=== PATIENT | female | born 1935 | race Hispanic/Latino ===

== ENCOUNTER 2018-04-08 23:19 | Emergency (ER) | payer MEDICARE ==
[~2018-04-08] VITALS: Ht 154.9 cm; Wt 77.1 kg
--- OUTSIDE RECORDS SUMMARY | 2018-04-08 23:21 | XMS REPORT | Summary of Care ---
Author Author [facility] Organization [facility] Address Unknown Phone Unavailable Encounter [facility] [employer]([facility]) [id number] Date(s): 01/20/16 - 01/20/16 [facility] [address] [place] [address]- Discharge Disposition: Home or Self Care Attending Physician: Dixon Hahn MD Admitting Physician: Dixon Hahn MD Vital Signs 1 2 3 Most recent to oldest [Reference Range]: 154.94 cm (01/20/16 4:00 PM) 157.48 cm (01/20/16 12:06 PM) Height 98.6 DegF (01/21/16 3:00 PM) 98.6 DegF (01/21/16 11:00 AM) 97.8 DegF (01/21/16 8:00 AM) Temperature Oral [96.4-99.1 DegF] 148/79 mmHg *HI* (01/21/16 3:00 PM) 149/82 mmHg *HI* (01/21/16 11:00 AM) 134/79 mmHg (01/21/16 8:00 AM) Blood Pressure [90-140/60-90 mmHg] 18 BRMIN (01/21/16 3:00 PM) 18 BRMIN (01/21/16 11:00 AM) 18 BRMIN (01/21/16 8:00 AM) Respiratory Rate [14-20 BRMIN] 76 bpm (01/21/16 3:00 PM) 77 bpm (01/21/16 11:00 AM) 77 bpm (01/21/16 8:00 AM) Peripheral Pulse Rate [60-100 bpm] 76.364 kg (01/20/16 4:00 PM) 76.364 kg (01/20/16 12:06 PM) Weight 31.81 m2 (01/20/16 4:00 PM) 30.79 m2 (01/20/16 12:06 PM) Body Mass Index Problem List Condition Effective Dates Status Health Status Informant Hypertension(Confirm Resolved ed) Allergies, Adverse Reactions, Alerts Substance Reaction Severity Status NKDA Active Medications aspirin 324 mg, Route: PO, ONCE, Dosing Weight 76.364, kg, Priority: STAT, Start date: 03/21/15 12:33:00 WELDER OXYHYDROGEN, Stop date: 01/20/16 12:33:00 WELDER OXYHYDROGEN Start Date: 01/20/16 Stop Date: 01/20/16 Status: Completed aspirin 325 mg tablet 325 mg, 1 tab, Route: PO, Drug form: TAB, ONCE, Dosing Weight 76.364, kg, Start date: 01/20/16 15:50:00 WELDER OXYHYDROGEN, Stop date: 01/20/16 15:50:00 WELDER OXYHYDROGEN Notes: Take with food. Start Date: 01/20/16 Stop Date: 01/20/16 Status: Completed aspirin 81 mg tablet, enteric coated 81 mg, 1 tab, Route: PO, Drug form: ECTAB, Daily, Dosing Weight 76.364, kg, Star t date: 01/21/16 9:00:00 WELDER OXYHYDROGEN, Duration: 30 day, Stop date: 02/19/16 9:00:00 WELDER OXYHYDROGEN Notes: Do not crush or chew.(Same As: Ecotrin) Start Date: 01/21/16 Stop Date: 01/21/16 Status: Discontinued aspirin 81 mg tablet, enteric coated 81 mg=1 tab, PO, Daily, 0 Refill(s) Start Date: 01/21/16 Status: Ordered atorvastatin 40 mg, 1 tab, Route: PO, Drug form: TAB, Bedtime, Dosing Weight 76.364, kg, Star t date: 01/21/16 21:00:00 WELDER OXYHYDROGEN, Duration: 30 day, Stop date: 02/19/16 21:00:00 CS T Notes: (Same as: Lipitor) Start Date: 01/21/16 Stop Date: 01/21/16 Status: Discontinued atorvastatin 40 mg oral tablet 40 mg=1 tab, PO, Bedtime, # 30 tab, 0 Refill(s) Start Date: 01/21/16 Stop Date: 01/21/16 Status: Discontinued atorvastatin 40 mg oral tablet 40 mg=1 tab, PO, Bedtime, # 30 tab, 0 Refill(s) Start Date: 01/21/16 Status: Ordered Dextrose 50% Syringe 25 gm, 50 mL, Route: IVP, Drug Form: INJ, Dosing Weight 76.364, kg, PRN, PRN Blo od Glucose Results, Start date: 01/20/16 16:36:00 WELDER OXYHYDROGEN, Duration: 30 day, Stop da te: 02/19/16 16:35:00 WELDER OXYHYDROGEN Start Date: 01/20/16 Stop Date: 01/21/16 Status: Discontinued Dextrose 50% Syringe 12.5 gm, 25 mL, Route: IVP, Drug Form: INJ, Dosing Weight 76.364, kg, PRN, PRN B lood Glucose Results, Start date: 01/20/16 16:36:00 WELDER OXYHYDROGEN, Duration: 30 day, Stop date: 02/19/16 16:35:00 WELDER OXYHYDROGEN Start Date: 01/20/16 Stop Date: 01/21/16 Status: Discontinued Dextrose 50% Syringe 50 mL, Route: IVP, Dosing Weight 76.364, kg, PRN, PRN Blood Glucose Results, Sta rt date: 01/20/16 16:31:00 WELDER OXYHYDROGEN, Duration: 30 day, Stop date: 02/19/16 16:30:[address] Start Date: 01/20/16 Stop Date: 01/20/16 Status: Discontinued Dextrose 50% Syringe 25 mL, Route: IVP, Dosing Weight 76.364, kg, PRN, PRN Blood Glucose Results, Sta rt date: 01/20/16 16:31:00 WELDER OXYHYDROGEN, Duration: 30 day, Stop date: 02/19/16 16:30:[address] Start Date: 01/20/16 Stop Date: 01/20/16 Status: Discontinued enoxaparin 40 mg, 0.4 mL, Route: SUB-Q, Drug form: INJ, [id number], Dosing Weight 76.364, kg, Start date: 01/20/16 15:00:00 WELDER OXYHYDROGEN, Duration: 30 day, Stop date: 02/18/16 15:00: 00 WELDER OXYHYDROGEN Notes: (Same as: Lovenox) Start Date: 01/20/16 Stop Date: 01/21/16 Status: Discontinued ergocalciferol 50,000 IntlUnit, 1 cap, Route: PO, Drug form: CAP, Daily, Dosing Weight 76.364, kg, Start date: 01/21/16 9:00:00 WELDER OXYHYDROGEN, Duration: 3 day, Stop date: 01/23/16 9:00: 00 WELDER OXYHYDROGEN Notes: (Same as: Vitamin D) "Do Not Crush" Start Date: 01/21/16 Stop Date: 01/21/16 Status: Discontinued glipiZIDE 5 mg oral tablet 5 mg, 1 tab, Route: PO, Drug form: TAB, BID, Dosing Weight 76.364, kg, Start rich e: 01/21/16 9:00:00 WELDER OXYHYDROGEN, Duration: 30 day, Stop date: 02/19/16 17:00:00 WELDER OXYHYDROGEN Notes: (Same as: Glucotrol) 30 min before meals. Start Date: 01/21/16 Stop Date: 01/21/16 Status: Discontinued glipiZIDE 5 mg oral tablet 5 mg=1 tab, PO, BID, # 60 tab, 0 Refill(s) Start Date: 01/21/16 Stop Date: 01/21/16 Status: Discontinued glipiZIDE 5 mg oral tablet, extended release 5 mg=1 tab, PO, Breakfast, # 30 tab, 0 Refill(s) Start Date: 01/21/16 Status: Ordered glipiZIDE 5 mg oral tablet, extended release 5 mg=1 tab, PO, Breakfast, # 30 tab, 0 Refill(s) Start Date: 01/21/16 Status: Ordered glucagon 1 mg, Route: IM, Drug form: PDR/INJ, PRN, Dosing Weight 76.364, kg, PRN Blood Gl ucose Results, Start date: 01/20/16 16:36:00 WELDER OXYHYDROGEN, Duration: 30 day, Stop date: 04/21/15 16:35:00 WELDER OXYHYDROGEN Start Date: 01/20/16 Stop Date: 01/21/16 Status: Discontinued glucagon 1 mg, Route: IM, PRN, Dosing Weight 76.364, kg, PRN Blood Glucose Results, Start date: 01/20/16 16:31:00 WELDER OXYHYDROGEN, Duration: 30 day, Stop date: 02/19/16 16:30:00 WELDER OXYHYDROGEN Start Date: 01/20/16 Stop Date: 01/20/16 Status: Discontinued hydrALAZINE 10 mg, 0.5 mL, Route: IV, Drug form: INJ, Q4H, Dosing Weight 76.364, kg, PRN Hyp ertension, Start date: 01/20/16 14:20:00 WELDER OXYHYDROGEN, Duration: 30 day, Stop date: 02/18 14:19:00 WELDER OXYHYDROGEN Notes: (Same as: Apresoline)Push over 5 minutes Start Date: 01/20/16 Stop Date: 01/21/16 Status: Discontinued hydrochlorothiazide-lisinopril 12.5 mg-20 mg oral tablet 1 tab, PO, Daily, 0 Refill(s) Start Date: 01/20/16 Status: Ordered insulin aspart 3 unit, 0.03 mL, Route: SUB-Q, Drug form: SOLN, Bedtime, Dosing Weight 76.364, k g, PRN Blood Glucose Results, Start date: 01/20/16 16:36:00 WELDER OXYHYDROGEN, Duration: 30 da y, Stop date: 02/19/16 16:35:00 WELDER OXYHYDROGEN Notes: Roll in palms of hands gently; Do not shake vigorously. (Same as: NovoSHILOH Charles)"single patient use only"WASTE: F/P - Black; E - Municipal Trash Bin Stable f or 28 days at room temperature.Expires in days from Date Start Date: 01/20/16 Stop Date: 01/21/16 Status: Discontinued insulin aspart 4 unit, 0.04 mL, Route: SUB-Q, Drug form: SOLN, Bedtime, Dosing Weight 76.364, k g, PRN Blood Glucose Results, Start date: 01/20/16 16:36:00 WELDER OXYHYDROGEN, Duration: 30 da y, Stop date: 02/19/16 16:35:00 WELDER OXYHYDROGEN Notes: Roll in palms of hands gently; Do not shake vigorously. (Same as: NovoSHILOH G)"single patient use only"WASTE: F/P - Black; E - Municipal Trash Bin Stable f or 28 days at room temperature.Expires in days from Date Start Date: 01/20/16 Stop Date: 01/21/16 Status: Discontinued insulin aspart 1 unit, 0.01 mL, Route: SUB-Q, Drug form: SOLN, Bedtime, Dosing Weight 76.364, k g, PRN Blood Glucose Results, Start date: 01/20/16 16:36:00 WELDER OXYHYDROGEN, Duration: 30 da y, Stop date: 02/19/16 16:35:00 WELDER OXYHYDROGEN Notes: Roll in palms of hands gently; Do not shake vigorously. (Same as: Gerry Charles)"single patient use only"WASTE: F/P - Black; E - Municipal Trash Bin Stable f or 28 days at room temperature.Expires in days from Date Start Date: 01/20/16 Stop Date: 01/21/16 Status: Discontinued insulin aspart 2 unit, 0.02 mL, Route: SUB-Q, Drug form: SOLN, Bedtime, Dosing Weight 76.364, k g, PRN Blood Glucose Results, Start date: 01/20/16 16:36:00 WELDER OXYHYDROGEN, Duration: 30 da y, Stop date: 02/19/16 16:35:00 WELDER OXYHYDROGEN Notes: Roll in palms of hands gently; Do not shake vigorously. (Same as: Gerry Charles)"single patient use only"WASTE: F/P - Black; E - Municipal Trash Bin Stable f or 28 days at room temperature.Expires in days from Date Start Date: 01/20/16 Stop Date: 01/21/16 Status: Discontinued insulin aspart 10 unit, 0.1 mL, Route: SUB-Q, Drug form: SOLN, TID-Before Meals, Dosing Weight 76.364, kg, PRN Blood Glucose Results, Start date: 01/20/16 16:36:00 WELDER OXYHYDROGEN, Durati on: 30 day, Stop date: 02/19/16 16:35:00 WELDER OXYHYDROGEN Notes: Roll in palms of hands gently; Do not shake vigorously. (Same as: Gerry Charles)"single patient use only"WASTE: F/P - Black; E - Municipal Trash Bin Stable f or 28 days at room temperature.Expires in days from Date Start Date: 01/20/16 Stop Date: 01/21/16 Status: Discontinued insulin aspart 8 unit, 0.08 mL, Route: SUB-Q, Drug form: SOLN, TID-Before Meals, Dosing Weight 76.364, kg, PRN Blood Glucose Results, Start date: 01/20/16 16:36:00 WELDER OXYHYDROGEN, Durati on: 30 day, Stop date: 02/19/16 16:35:00 WELDER OXYHYDROGEN Notes: Roll in palms of hands gently; Do not shake vigorously. (Same as: Gerry Charles)"single patient use only"WASTE: F/P - Black; E - Municipal Trash Bin Stable f or 28 days at room temperature.Expires in days from Date Start Date: 01/20/16 Stop Date: 01/21/16 Status: Discontinued insulin aspart 2 unit, 0.02 mL, Route: SUB-Q, Drug form: SOLN, TID-Before Meals, Dosing Weight 76.364, kg, PRN Blood Glucose Results, Start date: 01/20/16 16:36:00 WELDER OXYHYDROGEN, Durati on: 30 day, Stop date: 02/19/16 16:35:00 WELDER OXYHYDROGEN Notes: Roll in palms of hands gently; Do not shake vigorously. (Same as: NovoSHILOH Charles)"single patient use only"WASTE: F/P - Black; E - Municipal Trash Bin Stable f or 28 days at room temperature.Expires in days from Date Start Date: 01/20/16 Stop Date: 01/21/16 Status: Discontinued insulin aspart 4 unit, 0.04 mL, Route: SUB-Q, Drug form: SOLN, TID-Before Meals, Dosing Weight 76.364, kg, PRN Blood Glucose Results, Start date: 01/20/16 16:36:00 WELDER OXYHYDROGEN, Durati on: 30 day, Stop date: 02/19/16 16:35:00 WELDER OXYHYDROGEN Notes: Roll in palms of hands gently; Do not shake vigorously. (Same as: NovoSHILOH G)"single patient use only"WASTE: F/P - Black; E - Municipal Trash Bin Stable f or 28 days at room temperature.Expires in days from Date Start Date: 01/20/16 Stop Date: 01/21/16 Status: Discontinued insulin aspart 6 unit, 0.06 mL, Route: SUB-Q, Drug form: SOLN, TID-Before Meals, Dosing Weight 76.364, kg, PRN Blood Glucose Results, Start date: 01/20/16 16:36:00 WELDER OXYHYDROGEN, Durati on: 30 day, Stop date: 02/19/16 16:35:00 WELDER OXYHYDROGEN Notes: Roll in palms of hands gently; Do not shake vigorously. (Same as: Gerry Charles)"single patient use only"WASTE: F/P - Black; E - Municipal Trash Bin Stable f or 28 days at room temperature.Expires in days from Date Start Date: 01/20/16 Stop Date: 01/21/16 Status: Discontinued insulin aspart 8 unit, Route: SUB-Q, TID-Before Meals, Dosing Weight 76.364, kg, PRN Blood Gluc ose Results, Start date: 01/20/16 16:31:00 WELDER OXYHYDROGEN, Duration: 30 day, Stop date: 16:30:00 WELDER OXYHYDROGEN Start Date: 01/20/16 Stop Date: 01/20/16 Status: Discontinued insulin aspart 4 unit, Route: SUB-Q, TID-Before Meals, Dosing Weight 76.364, kg, PRN Blood Gluc ose Results, Start date: 01/20/16 16:31:00 WELDER OXYHYDROGEN, Duration: 30 day, Stop date: 16:30:00 WELDER OXYHYDROGEN Start Date: 01/20/16 Stop Date: 01/20/16 Status: Discontinued insulin aspart 2 unit, Route: SUB-Q, TID-Before Meals, Dosing Weight 76.364, kg, PRN Blood Gluc ose Results, Start date: 01/20/16 16:31:00 WELDER OXYHYDROGEN, Duration: 30 day, Stop date: 16:30:00 WELDER OXYHYDROGEN Start Date: 01/20/16 Stop Date: 01/20/16 Status: Discontinued insulin aspart 6 unit, Route: SUB-Q, TID-Before Meals, Dosing Weight 76.364, kg, PRN Blood Gluc ose Results, Start date: 01/20/16 16:31:00 WELDER OXYHYDROGEN, Duration: 30 day, Stop date: 16:30:00 WELDER OXYHYDROGEN Start Date: 01/20/16 Stop Date: 01/20/16 Status: Discontinued insulin aspart 10 unit, Route: SUB-Q, TID-Before Meals, Dosing Weight 76.364, kg, PRN Blood Glu cose Results, Start date: 01/20/16 16:31:00 WELDER OXYHYDROGEN, Duration: 30 day, Stop date: 16:30:00 WELDER OXYHYDROGEN Start Date: 01/20/16 Stop Date: 01/20/16 Status: Discontinued Lipitor 40 mg, 1 tab, Route: PO, Drug form: TAB, Bedtime, Dosing Weight 76.364, kg, Star t date: 01/20/16 21:00:00 WELDER OXYHYDROGEN, Duration: 30 day, Stop date: 02/18/16 21:00:00 CS T Notes: (Same as: Lipitor) Start Date: 01/20/16 Stop Date: 01/21/16 Status: Discontinued lisinopril 5 mg, Route: PO, Drug form: TAB, Daily, Dosing Weight 76.364, kg, Start date: 9:00:00 WELDER OXYHYDROGEN, Duration: 30 day, Stop date: 02/19/16 9:00:00 WELDER OXYHYDROGEN Start Date: 01/21/16 Stop Date: 01/20/16 Status: Canceled lisinopril 5 mg, 1 tab, Route: PO, Drug form: TAB, Daily, Dosing Weight 76.364, kg, Start d ate: 01/21/16 9:00:00 WELDER OXYHYDROGEN, Duration: 30 day, Stop date: 02/19/16 9:00:00 WELDER OXYHYDROGEN Notes: (Same as: Prinivil, Zestril) Start Date: 01/21/16 Stop Date: 01/21/16 Status: Discontinued metoprolol 5 mg/5 ml INJ 5 mg, 5 mL, Route: IV, Drug form: INJ, Q2H, Dosing Weight 76.364, kg, PRN Tachyc ardia, Start date: 01/20/16 14:21:00 WELDER OXYHYDROGEN, Duration: 30 day, Stop date: 02/19/16 14:20:00 WELDER OXYHYDROGEN Notes: (Same as: Lopressor)Push over 2 minutes Start Date: 01/20/16 Stop Date: 01/21/16 Status: Discontinued morphine Sulfate 2 mg, 1 mL, Route: IVP, Drug form: INJ, Q2H, Dosing Weight 76.364, kg, PRN Chest Pain, Start date: 01/20/16 14:20:00 WELDER OXYHYDROGEN, Duration: 30 day, Stop date: 02/19/16 14:19:00 WELDER OXYHYDROGEN Notes: (Same as:MORPhine Sulfate) Start Date: 01/20/16 Stop Date: 01/21/16 Status: Discontinued nitroglycerin SL Tab 0.4 mg, 1 tab, Route: SL, Drug form: TAB, Q5Min, Dosing Weight 76.364, kg, PRN C hest Pain, Start date: 01/20/16 15:50:00 WELDER OXYHYDROGEN, Duration: 3 doses or times, Stop d ate: Limited # of times Notes: (Same as:Nitroquick, Nitrostat)"Do Not Crush" Sublingual tablet Start Date: 01/20/16 Stop Date: 01/21/16 Status: Discontinued Nitrostat 0.4 mg sublingual tablet 0.4 mg, 1 tab, Route: SL, Drug form: TAB, Q5Min, Dosing Weight 76.364, kg, PRN C hest Pain, Start date: 01/20/16 14:21:00 WELDER OXYHYDROGEN, Duration: 3 doses or times, Stop d ate: Limited # of times Notes: (Same as:Nitroquick, Nitrostat)"Do Not Crush" Sublingual tablet Start Date: 01/20/16 Stop Date: 01/21/16 Status: Discontinued NS (Bolus) IV 1,000 mL, 1,000 ml/hr, Infuse Over: 1 hr, Route: IV, ONCE, Priority: STAT, Dosin g Weight 76.364 kg, Start date: 01/20/16 13:29:00 WELDER OXYHYDROGEN, Duration: 1 doses or time s, Stop date: 01/20/16 13:29:00 WELDER OXYHYDROGEN Start Date: 01/20/16 Stop Date: 01/20/16 Status: Completed Saline Flush 0.9% 10 mL, Route: IVP, Drug Form: INJ, Dosing Weight 76.364, kg, PRN, PRN Line Flush , Start date: 01/20/16 12:33:00 WELDER OXYHYDROGEN, Duration: 30 day, Stop date: 02/19/16 12:32 :00 WELDER OXYHYDROGEN Notes: (Same as: BD Posiflush) Start Date: 01/20/16 Stop Date: 01/20/16 Status: Discontinued Saline Flush 0.9% 10 ml, Route: IVP, Drug Form: INJ, Dosing Weight 76.364, kg, Q12H, Start date: 03/21/15 21:00:00 WELDER OXYHYDROGEN, Duration: 30 day, Stop date: 02/19/16 9:00:00 WELDER OXYHYDROGEN Notes: (Same as: BD Posiflush) Start Date: 01/20/16 Stop Date: 01/21/16 Status: Discontinued Saline Flush 0.9% 10 ml, Route: IVP, Drug Form: INJ, Dosing Weight 76.364, kg, PRN, PRN Line Flush , Start date: 01/20/16 15:50:00 WELDER OXYHYDROGEN, Duration: 30 day, Stop date: 02/19/16 15:49 :00 WELDER OXYHYDROGEN Notes: (Same as: BD Posiflush) Start Date: 01/20/16 Stop Date: 01/21/16 Status: Discontinued sodium chloride 0.9% 1000 ml INJ 1,000 mL 1,000 mL, Rate: 75 ml/hr, Infuse over: 13.3 hr, Route: IV, Dosing Weight 76.364 kg, Total Volume: 1,000, Start date: 01/20/16 20:00:00 WELDER OXYHYDROGEN, Duration: 30 day, St op date: 02/19/16 19:59:00 WELDER OXYHYDROGEN Start Date: 01/20/16 Stop Date: 01/21/16 Status: Discontinued Results ELECTROLYTES 1 2 3 Most recent to oldest [Reference Range]: 136 mEq/L (01/20/16 12:36 PM) Sodium Lvl [135-145 mEq/L] 4.0 mEq/L (01/20/16 12:36 PM) Potassium Lvl [3.5-5.1 mEq/L] 101 mEq/L (01/20/16 12:36 PM) Chloride Lvl [95-109 mEq/L] 24 mEq/L (01/20/16 12:36 PM) CO2 [24-32 mEq/L] 15.0 mEq/L (01/20/16 12:36 PM) AGAP [10.0-20.0 mEq/L] CHEM PANEL 1 2 3 Most recent to oldest [Reference Range]: 0.93 mg/dL (01/20/16 12:36 PM) Creatinine Lvl [0.50-1.40 mg/dL] 57 mL/min/1.73m2 1 *NA* (01/20/16 12:36 PM) eGFR 19 mg/dL (01/20/16 12:36 PM) BUN [7-22 mg/dL] 297 mg/dL *HI* (01/20/16 12:36 PM) Glucose Lvl [70-99 mg/dL] 3.8 mg/dL (01/20/16 4:31 PM) Uric Acid [2.5-7.0 mg/dL] 7.1 g/dL (01/20/16 10:37 PM) Total Protein [6.4-8.4 g/dL] 3.4 g/dL *LOW* (01/20/16 10:37 PM) Albumin Lvl [3.5-5.0 g/dL] 3.7 g/dL (01/20/16 10:37 PM) Globulin [2.7-4.2 g/dL] 0.9 (01/20/16 10:37 PM) A/G Ratio [0.7-1.6] 8.8 mg/dL (01/20/16 12:36 PM) Calcium Lvl [8.5-10.5 mg/dL] 3.0 mg/dL (01/20/16 4:31 PM) Phosphorus [2.5-4.5 mg/dL] 2.1 mg/dL (01/20/16 12:36 PM) Magnesium Lvl [1.8-2.4 mg/dL] 58 unit/L (01/20/16 10:37 PM) ALT [0-65 unit/L] 30 unit/L (01/20/16 10:37 PM) AST [0-37 unit/L] 67 unit/L (01/20/16 10:37 PM) Alk Phos [39-136 unit/L] 0.4 mg/dL (01/20/16 10:37 PM) Bili Total [0.2-1.3 mg/dL] 0.1 mg/dL (01/20/16 10:37 PM) Bili Direct [0.0-0.3 mg/dL] 0.3 mg/dL (01/20/16 10:37 PM) Bili Indirect [0.0-1.0 mg/dL] 178 unit/L (01/20/16 12:36 PM) Lipase Lvl [73-393 unit/L] 21 ng/mL *LOW* (01/20/16 4:31 PM) Vitamin D, 25-OH, Total [30-100 ng/mL] 1Result Comment: The eGFR is calculated using the CKD-EPI formula. In most young, healthy individuals the eGFR will be >90 mL/min/1.73m2. The eGFR declines with age. An eGFR of 60-89 may be normal in some populations, particularly the elderly, for whom the CKD-EPI formula has not been extensively validated. Use of the eGFR is not recommended in the following populations: Individuals with unstable creatinine concentrations, including patients and those with serious co-morbid conditions. Patients with extremes in muscle mass or diet. The data above are obtained from the National Kidney Disease Education Program ( NKDEP) which additionally recommends that when the eGFR is used in patients with extremes of body mass index for purposes of drug dosing, the eGFR should be mul tiplied by the estimated BMI. CARDIAC ENZYMES 1 2 3 Most recent to oldest [Reference Range]: 57 unit/L (01/20/16 10:37 PM) 54 unit/L (01/20/16 6:24 PM) 68 unit/L (01/20/16 12:36 PM) Total CK [12-191 unit/L] 1.9 ng/mL (01/20/16 12:36 PM) CK MB [0.5-3.6 ng/mL] 2.8 *HI* (01/20/16 12:36 PM) CK MB Index [0.0-2.5] <0.02 ng/mL (01/20/16 10:37 PM) <0.02 ng/mL (01/20/16 6:24 PM) <0.02 ng/mL (01/20/16 12:36 PM) Troponin-I [0.00-0.40 ng/mL] 13 pg/mL (01/20/16 4:31 PM) BNP [<=100 pg/mL] LIPIDS 1 2 3 Most recent to oldest [Reference Range]: 4.80 (01/20/16 4:31 PM) CHD Risk [3.90-5.80] 235 mg/dL *HI* (01/20/16 4:31 PM) Chol [<=199 mg/dL] 177 mg/dL *HI* (01/20/16 4:31 PM) Trig [<=149 mg/dL] 49 mg/dL *LOW* (01/20/16 4:31 PM) HDL [>=61 mg/dL] 151 mg/dL *HI* (01/20/16 4:31 PM) LDL (Calculated) [<=99 mg/dL] 35 *NA* (01/20/16 4:31 PM) VLDL SPECIAL CHEMISTRY 1 2 3 Most recent to oldest [Reference Range]: 9.2 % *HI* (01/20/16 4:31 PM) Hgb A1C [<=5.6 %] URINE CHEM 1 2 3 Most recent to oldest [Reference Range]: <5.0 mg/L *NA* (01/21/16 4:02 AM) U Microalb <7.9 mcg/mg creat (01/21/16 4:02 AM) U Alb/Crea [<=30.0 mcg/mg creat] 63.00 mg/dL *NA* (01/21/16 4:02 AM) U Creatinine URINE AND STOOL 1 2 3 Most recent to oldest [Reference Range]: Clear (01/20/16 12:57 PM) UA Turbidity [Clear] Ltyellow *NA* (01/20/16 12:57 PM) UA Color 5.0 (01/20/16 12:57 PM) UA pH [5.0-8.0] 1.017 (01/20/16 12:57 PM) UA Spec Grav [<=1.030] 500 mg/dL *ABN* (01/20/16 12:57 PM) UA Glucose [Negative mg/dL] Negative (01/20/16 12:57 PM) UA Blood [Negative] Negative mg/dL *NA* (01/20/16 12:57 PM) UA Ketones [Negative mg/dL] Negative mg/dL (01/20/16 12:57 PM) UA Protein [Negative mg/dL] <=1.0 mg/dL *NA* (01/20/16 12:57 PM) UA Urobilinogen [0.1-1.0 mg/dL] Negative *NA* (01/20/16 12:57 PM) UA Bili [Negative] Trace *ABN* (01/20/16 12:57 PM) UA Leuk Est [Negative] Negative (01/20/16 12:57 PM) UA Nitrite [Negative] 1 /HPF (01/20/16 12:57 PM) UA WBC [0-5 /HPF] 2 /HPF (01/20/16 12:57 PM) UA RBC [0-2 /HPF] Occasional /LPF *NA* (01/20/16 12:57 PM) UA Sq Epi [Few /LPF] IMMUNOLOGY 1 2 3 Most recent to oldest [Reference Range]: 7.5 uMol/L (01/20/16 4:31 PM) Homocyst Tot [3.7-13.9 uMol/L] HEMATOLOGY 1 2 3 Most recent to oldest [Reference Range]: 8.2 K/CMM (01/20/16 12:36 PM) WBC [3.7-10.4 K/CMM] 4.78 M/CMM (01/20/16 12:36 PM) RBC [4.20-5.40 M/CMM] 14.0 g/dL (01/20/16 12:36 PM) Hgb [12.0-16.0 g/dL] 42.4 % (01/20/16 12:36 PM) Hct [36.0-48.0 %] 88.6 fL (01/20/16 12:36 PM) MCV [80.0-98.0 fL] 29.3 pg (01/20/16 12:36 PM) MCH [27.0-31.0 pg] 33.1 g/dL (01/20/16 12:36 PM) MCHC [32.0-36.0 g/dL] 13.1 % (01/20/16 12:36 PM) RDW [11.5-14.5 %] 213 K/CMM (01/20/16 12:36 PM) Platelet [133-450 K/CMM] 10.1 fL (01/20/16 12:36 PM) MPV [7.4-10.4 fL] 66.2 % (01/20/16 12:36 PM) Segs [45.0-75.0 %] 23.0 % (01/20/16 12:36 PM) Lymphocytes [20.0-40.0 %] 7.6 % (01/20/16 12:36 PM) Monocytes [2.0-12.0 %] 2.4 % (01/20/16 12:36 PM) Eosinophils [0.0-4.0 %] 0.8 % (01/20/16 12:36 PM) Basophils [0.0-1.0 %] 5.5 K/CMM (01/20/16 12:36 PM) Segs-Bands # [1.5-8.1 K/CMM] 1.9 K/CMM (01/20/16 12:36 PM) Lymphocytes # [1.0-5.5 K/CMM] 0.6 K/CMM (01/20/16 12:36 PM) Monocytes # [0.0-0.8 K/CMM] 0.2 K/CMM (01/20/16 12:36 PM) Eosinophils # [0.0-0.5 K/CMM] 0.1 K/CMM (01/20/16 12:36 PM) Basophils # [0.0-0.2 K/CMM] 13.5 seconds (01/20/16 12:36 PM) PT [12.0-14.7 seconds] 1.01 (01/20/16 12:36 PM) INR [0.85-1.17] 26.9 seconds (01/20/16 12:36 PM) PTT [22.9-35.8 seconds] Immunizations No data available for this section Procedures Procedure Date Related Diagnosis Body Site Cholecystectomy Social History Social History Type Response Alcohol Never Smoking Status Former smoker; Type: Cigarettes; Started at age: 16.0; Stopped at age: 17; Exposure to Tobacco Smoke None; Cigarette Smoking Last 365 Days No; Reg Smoking Cessation Counseling No Assessment and Plan Extracted from: Title: Clinical Document Author: Dixon Hahn MD Date: 01/21/16 [id number] Extracted from: Title: General Admission H&P * Author: Dixon Hahn MD Date: 01/20/16 Impression and Plan 1. Chest pain rule out ACS cardiology consulted, troponins 2 negative, EKG shows no acute findings, cardioprotective meds aspirin statin GIO inhibitor, stress test and echo scheduled for tomorrow. 2. Type 2 diabetes newly diagnosed-A1c elevated 9.2, insulin sliding scale in the hospital, Accu-Cheks, diabetic education, start on glipizide 5 mg twice a bid 3. Hyperlipidemia LDL elevated, start on Lipitor 40 mg daily nightly 4. Hypertension start on low-dose lisinopril 5 mg daily for cardio protective measures and renal protection, age-appropriate blood pressure for her 150s 5. Prophylaxis Lovenox 6. Fluid electrolytes nutrients diabetic diet, nothing by mouth after midnight, low dose IV fluids after midnight 7. Disposition observation unit likely discharge in 1-2 days if stable and all imaging studies are negative
--- OUTSIDE RECORDS SUMMARY | 2018-04-08 23:21 | XMS REPORT | Continuity of Care Document ---
Author Author [facility] Interface Address Unknown Phone Unavailable Problems Problem Status Onset Date Classification Date Reported Comments Source CHEST PAIN Active 01/20/2016 [facility] ACUTE CP Active 01/20/2016 [facility] Hypertension Resolved Problem 12/19/2016 [facility] [place] Simple obesity Active Problem 12/19/2016 [facility] [place] Medications Medication Details Route Status Patient Instructions Ordering Provider Order Date Source atorvastatin 40 mg, 1 tab, Route: PO, Drug form: TAB, Bedtime, Dosing Weight 76.364, kg, Start date: 01/21/16 21:00:00 COMPLIANCE ASSOCIATE, Duration: 30 day, Stop date: 02/19/16 21:00:00 CSTNotes: (Same as: Lipitor) Inactive 01/22/2016 [facility] 24 HR Glipizide 5 MG Extended Release Tablet 5 mg=1 tab, PO, Breakfast, # 30 tab, 0 Refill(s) Active 01/21/2016 [facility] atorvastatin 40 mg oral tablet 40 mg=1 tab, PO, Bedtime, # 30 tab, 0 Refill(s) Active 01/21/2016 [facility] Glipizide 5 MG Oral Tablet 5 mg=1 tab, PO, BID, # 60 tab, 0 Refill(s) Inactive 01/21/2016 [facility] atorvastatin 40 mg oral tablet 40 mg=1 tab, PO, Bedtime, # 30 tab, 0 Refill(s) Inactive 01/21/2016 [facility] Aspirin 81 MG Enteric Coated Tablet 81 mg=1 tab, PO, Daily, 0 Refill(s) Active 01/21/2016 [facility] Glipizide 5 MG Oral Tablet 5 mg, 1 tab, Route: PO, Drug form: TAB, BID, Dosing Weight 76.364, kg, Start date: 01/21/16 9:00:00 COMPLIANCE ASSOCIATE, Duration: 30 day, Stop date: 02/19/16 17:00:00 CSTNotes: (Same as: Glucotrol) 30 min before meals. Inactive 01/21/2016 [facility] Lisinopril 5 mg, Route: PO, Drug form: TAB, Daily, Dosing Weight 76.364, kg, Start date: 01/21/16 9:00:00 COMPLIANCE ASSOCIATE, Duration: 30 day, Stop date: 02/19/16 9:00:00 COMPLIANCE ASSOCIATE No Longer Active 01/21/2016 [facility] ergocalciferol 50,000 IntlUnit, 1 cap, Route: PO, Drug form: CAP, Daily, Dosing Weight 76.364, kg, Start date: 01/21/16 9:00:00 COMPLIANCE ASSOCIATE, Duration: 3 day, Stop date: 01/23/16 9:00:00 CSTNotes: (Same as: Vitamin D) "Do Not Crush" Inactive 01/21/2016 [facility] Aspirin 81 MG Enteric Coated Tablet 81 mg, 1 tab, Route: PO, Drug form: ECTAB, Daily, Dosing Weight 76.364, kg, Start date: 01/21/16 9:00:00 COMPLIANCE ASSOCIATE, Duration: 30 day, Stop date: 02/19/16 9:00:00 CSTNotes: Do not crush or chew. (Same As: Ecotrin) Inactive 01/21/2016 [facility] Lipitor 40 mg, 1 tab, Route: PO, Drug form: TAB, Bedtime, Dosing Weight 76.364, kg, Start date: 01/20/16 21:00:00 COMPLIANCE ASSOCIATE, Duration: 30 day, Stop date: 02/18/16 21:00:00 CSTNotes: (Same as: Lipitor) No Longer Active 01/21/2016 [facility] Saline Flush 0.9% 10 ml, Route: IVP, Drug Form: INJ, Dosing Weight 76.364, kg, Q12H, Start date: 01/20/16 21:00:00 COMPLIANCE ASSOCIATE, Duration: 30 day, Stop date: 02/19/16 9:00:00 CSTNotes: (Same as: BD Posiflush) No Longer Active 01/21/2016 [facility] sodium chloride 0.9% 1000 ml INJ 1,000 mL 1,000 mL, Rate: 75 ml/hr, Infuse over: 13.3 hr, Route: IV, Dosing Weight 76.364 kg, Total Volume: 1,000, Start date: 01/20/16 20:00:00 COMPLIANCE ASSOCIATE, Duration: 30 day, Stop date: 02/19/16 19:59:00 COMPLIANCE ASSOCIATE No Longer Active 01/21/2016 [facility] Insulin, Aspart, Human 3 unit, 0.03 mL, Route: SUB-Q, Drug form: SOLN, Bedtime, Dosing Weight 76.364, kg, PRN Blood Glucose Results, Start date: 01/20/16 16:36:00 COMPLIANCE ASSOCIATE, Duration: 30 day, Stop date: 02/19/16 16:35:00 CSTNotes: Roll in palms of hands gently; Do not shake vigorously. (Same as: NovoLOG) "single patient use only" WASTE: F/P - Black; E - Municipal Trash Bin Stable for 28 days at room temperature. Expires in days from Date No Longer Active 01/20/2016 [facility] Dextrose 50% Syringe 25 gm, 50 mL, Route: IVP, Drug Form: INJ, Dosing Weight 76.364, kg, PRN, PRN Blood Glucose Results, Start date: 01/20/16 16:36:00 COMPLIANCE ASSOCIATE, Duration: 30 day, Stop date: 02/19/16 16:35:00 COMPLIANCE ASSOCIATE No Longer Active 01/20/2016 [facility] Glucagon 1 mg, Route: IM, Drug form: PDR/INJ, PRN, Dosing Weight 76.364, kg, PRN Blood Glucose Results, Start date: 01/20/16 16:36:00 COMPLIANCE ASSOCIATE, Duration: 30 day, Stop date: 02/19/16 16:35:00 COMPLIANCE ASSOCIATE No Longer Active 01/20/2016 [facility] Glucagon 1 mg, Route: IM, PRN, Dosing Weight 76.364, kg, PRN Blood Glucose Results, Start date: 01/20/16 16:31:00 COMPLIANCE ASSOCIATE, Duration: 30 day, Stop date: 02/19/16 16:30:00 COMPLIANCE ASSOCIATE Inactive 01/20/2016 [facility] Dextrose 50% Syringe 50 mL, Route: IVP, Dosing Weight 76.364, kg, PRN, PRN Blood Glucose Results, Start date: 01/20/16 16:31:00 COMPLIANCE ASSOCIATE, Duration: 30 day, Stop date: 02/19/16 16:30:00 COMPLIANCE ASSOCIATE Inactive 01/20/2016 [facility] Insulin, Aspart, Human 8 unit, Route: SUB-Q, TID-Before Meals, Dosing Weight 76.364, kg, PRN Blood Glucose Results, Start date: 01/20/16 16:31:00 COMPLIANCE ASSOCIATE, Duration: 30 day, Stop date: 02/19/16 16:30:00 COMPLIANCE ASSOCIATE Inactive 01/20/2016 [facility] Saline Flush 0.9% 10 ml, Route: IVP, Drug Form: INJ, Dosing Weight 76.364, kg, PRN, PRN Line Flush, Start date: 01/20/16 15:50:00 COMPLIANCE ASSOCIATE, Duration: 30 day, Stop date: 02/19/16 15:49:00 CSTNotes: (Same as: BD Posiflush) No Longer Active 01/20/2016 [facility] Aspirin 325 MG Oral Tablet 325 mg, 1 tab, Route: PO, Drug form: TAB, ONCE, Dosing Weight 76.364, kg, Start date: 01/20/16 15:50:00 COMPLIANCE ASSOCIATE, Stop date: 01/20/16 15:50:00 CSTNotes: Take with food. Inactive 01/20/2016 [facility] Nitroglycerin 0.4 mg, 1 tab, Route: SL, Drug form: TAB, Q5Min, Dosing Weight 76.364, kg, PRN Chest Pain, Start date: 01/20/16 15:50:00 COMPLIANCE ASSOCIATE, Duration: 3 doses or times, Stop date: Limited # of timesNotes: (Same as: Nitroquick, Nitrostat) "Do Not Crush" Sublingual tablet No Longer Active 01/20/2016 [facility] Hydrochlorothiazide 12.5 MG / Lisinopril 20 MG Oral Tablet 1 tab, PO, Daily, 0 Refill(s) Active 01/20/2016 [facility] Enoxaparin 40 mg, 0.4 mL, Route: SUB-Q, Drug form: INJ, [id number], Dosing Weight 76.364, kg, Start date: 01/20/16 15:00:00 COMPLIANCE ASSOCIATE, Duration: 30 day, Stop date: 02/18/16 15:00:00 CSTNotes: (Same as: Lovenox) No Longer Active 01/20/2016 [facility] Metoprolol 5 mg, 5 mL, Route: IV, Drug form: INJ, Q2H, Dosing Weight 76.364, kg, PRN Tachycardia, Start date: 01/20/16 14:21:00 COMPLIANCE ASSOCIATE, Duration: 30 day, Stop date: 02/19/16 14:20:00 CSTNotes: (Same as: Lopressor) Push over 2 minutes No Longer Active 01/20/2016 [facility] Nitroglycerin 0.4 MG Sublingual Tablet [Nitrostat] 0.4 mg, 1 tab, Route: SL, Drug form: TAB, Q5Min, Dosing Weight 76.364, kg, PRN Chest Pain, Start date: 01/20/16 14:21:00 COMPLIANCE ASSOCIATE, Duration: 3 doses or times, Stop date: Limited # of timesNotes: (Same as:Nitroquick, Nitrostat) "Do Not Crush" Sublingual tablet No Longer Active 01/20/2016 [facility] Morphine 2 mg, 1 mL, Route: IVP, Drug form: INJ, Q2H, Dosing Weight 76.364, kg, PRN Chest Pain, Start date: 01/20/16 14:20:00 COMPLIANCE ASSOCIATE, Duration: 30 day, Stop date: 02/19/16 14:19:00 CSTNotes: (Same as:MORPhine Sulfate) No Longer Active 01/20/2016 [facility] Hydralazine 10 mg, 0.5 mL, Route: IV, Drug form: INJ, Q4H, Dosing Weight 76.364, kg, PRN Hypertension, Start date: 01/20/16 14:20:00 COMPLIANCE ASSOCIATE, Duration: 30 day, Stop date: 02/19/16 14:19:00 CSTNotes: (Same as: Apresoline) Push over 5 minutes No Longer Active 01/20/2016 [facility] Sodium Chloride 0.154 MEQ/ML Injectable Solution 1,000 mL, 1,000 ml/hr, Infuse Over: 1 hr, Route: IV, ONCE, Priority: STAT, Dosing Weight 76.364 kg, Start date: 01/20/16 13:29:00 COMPLIANCE ASSOCIATE, Duration: 1 doses or times, Stop date: 01/20/16 13:29:00 COMPLIANCE ASSOCIATE Inactive 01/20/2016 [facility] Saline Flush 0.9% 10 mL, Route: IVP, Drug Form: INJ, Dosing Weight 76.364, kg, PRN, PRN Line Flush, Start date: 01/20/16 12:33:00 COMPLIANCE ASSOCIATE, Duration: 30 day, Stop date: 02/19/16 12:32:00 CSTNotes: (Same as: BD Posiflush) Inactive 01/20/2016 [facility] Aspirin 324 mg, Route: PO, ONCE, Dosing Weight 76.364, kg, Priority: STAT, Start date: 01/20/16 12:33:00 COMPLIANCE ASSOCIATE, Stop date: 01/20/16 12:33:00 COMPLIANCE ASSOCIATE Inactive 01/20/2016 [facility] Allergies, Adverse Reactions, Alerts Substance Category Reaction Severity Reaction type Status Date Reported Comments Source Immunizations Immunization Date Given Site Status Last Updated Comments Source Results Order Name Results Value Reference Range Date Interpretation Comments Source Knee wo contrast MRI Knee wo contrast MRI EXAMINATION: MRI of the left knee without contrast HISTORY: M25.569 Pain in unspecified knee; left knee pain status post fall one month ago; left knee medial meniscus tear; left knee medial femoral condyle insufficiency fracture; left knee patellar chondromalacia COMPARISON: There are no radiographs available for review. TECHNIQUE: Multiplanar, multisequence magnetic resonance imaging of the left knee is performed with an extremity coil without contrast. FINDINGS: Menisci: --Medial: There is a complex tear of the medial meniscus with incomplete radial component involving the body and horizontal undersurface component involving the posterior horn including small meniscal flap displaced superiorly at the posterior horn/root junction (series 4, image 19 and series 3, image 22). --Lateral: The anterior horn, body, and posterior horn are intact. Ligaments: The cruciate ligaments are intact. The medial collateral ligament and lateral collateral ligament complex are intact. Extensor mechanism: The extensor mechanism is intact. Muscles: There is mild fatty infiltration of the visualized distal aspect of the semimembranosus muscle. Otherwise, there is normal signal intensity and bulk of the musculature at the knee. Cartilage: Within the medial compartment, there is a tiny focal area of deep partial thickness chondrosis along the central to lateral aspect of the medial tibial plateau. Within the lateral compartment, there is a focal area of deep partial thickness to near full-thickness chondrosis along the far posterior and medial aspect of the lateral tibial plateau. Within the patellofemoral compartment, there is deep partial thickness to near full-thickness chondrosis involving the medial aspect of the patellar median ridge and adjacent medial patellar facet at the superior pole of the patella with underlying subchondral cyst formation. There is partial-thickness chondrosis along the inferior aspect of the medial and central trochlea. Bone: There is a subchondral insufficiency fracture along the central weightbearing medial femoral condyle with characteristic subchondral linear hypointense fracture line and surrounding bone marrow edema. There is also very mild subchondral edema within the medial tibial plateau and there is subchondral cyst formation at the superior pole of the patella. There are no additional fractures. There are no suspicious bone marrow replacing lesions. Soft tissues: There is mild subcutaneous edema along the anterior aspect of the knee. There is a small knee effusion and small Rios's cyst. A small amount of fluid extends along the pes anserine. There is a small ganglion cyst arising joint capsule at the superomedial aspect of the far posterior flexion zone of the lateral femoral condyle. IMPRESSION: 1. Complex tear of the left knee medial meniscus with incomplete radial component involving the body and horizontal undersurface component involving the posterior horn including small meniscal flap displaced superiorly at the posterior horn/root junction. 2. Subchondral insufficiency fracture along the central weightbearing left medial femoral condyle with surrounding bone marrow edema. 3. Mild to moderate patellofemoral and mild medial and lateral compartment, tricompartmental chondrosis of the left knee as described in detail above. 4. Small left knee effusion and small left knee Rios's cyst. 5. Mild left pes anserine bursitis with small amount of fluid extending along the pes anserine. 6. Intact left knee cruciate and collateral ligaments. 12/16/2016 - - Read by: Kal Centeno MD Dictated Date/time: 12/16/16 14:05 Electronically Signed by: Kal Centeno MD 12/16/16 14:19 FINAL REPORT [facility] [place] URINE CHEM U Microalb null 01/21/2016 [facility] URINE CHEM U Alb/Crea null <=30.0 mcg/mg creat 01/21/2016 [facility] URINE CHEM U Creatinine 63.00 mg/dL 01/21/2016 [facility] Cardiac SPECT multi studies [facility] Cardiac SPECT multi studies NM Addendum: The study was interpreted by Dr. Jules Newell. The technique should read--30mCi of [id number] m sestamibi was administered intravenously, followed by 10 mCi of intervenous administration of technetium 99m. Patient Name: NATALYA GALDAMEZ : 1935; Age: 80 years y/o Female MR: [id number] Study: Cardiac SPECT multi studies NM Comparison: None Clinical Indication: Chest tightness; The patient was administered 30 mCi technetium 99m sestamibi for the resting portion of the exam. Patient was administered 10 mCi technetium 99m sestamibi for the stress portion of the exam. Lexiscan protocol was utilized. The maximum heart rate achieved was 96 bpm which is 69% max predicted heart rate. Rest and stress images of the left ventricular myocardium were obtained in all 3 planes. Dynamic imaging of the left ventricular myocardium was acquired. The left ventricular ejection fraction was determined to be 69%. Findings: No defect in uptake at the left ventricular myocardial wall segments is noted on the rest or stress images. The left ventricular ejection fraction is 69%. No abnormal left ventricular wall motion is noted. IMPRESSION: 1. No findings for ischemia or scar at the left ventricular myocardial wall segments. 2. Normal left ventricular ejection fraction. 3. Normal left ventricular wall motion. SL: [id number] 01/21/2016 - - Read by: Jeff Calhoun MD Dictated Date/time: 02/16/16 13:42 Electronically Signed by: Jeff Calhoun MD 02/16/16 13:46 FINAL REPORT - - Read by: Jules Newell MD Dictated Date/time: 01/21/16 15:23 Electronically Signed by: Jules Newell MD 01/21/16 15:57 FINAL REPORT [facility] CARDIAC ENZYMES Troponin-I null 0.00 - 0.40 01/21/2016 [facility] CARDIAC ENZYMES Total CK 57 unit/L 12 - 191 01/21/2016 [facility] CHEM PANEL Alk Phos 67 unit/L 39 - 136 01/21/2016 [facility] CHEM PANEL Globulin 3.7 g/dL 2.7 - 4.2 01/21/2016 [facility] CHEM PANEL Albumin Lvl 3.4 g/dL 3.5 - 5.0 01/21/2016 [facility] CHEM PANEL Total Protein 7.1 g/dL 6.4 - 8.4 01/21/2016 [facility] CHEM PANEL A/G Ratio 0.9 0.7 - 1.6 01/21/2016 [facility] CHEM PANEL AST 30 unit/L 0 - 37 01/21/2016 [facility] CHEM PANEL ALT 58 unit/L 0 - 65 01/21/2016 [facility] CHEM PANEL Bili Indirect 0.3 mg/dL 0.0 - 1.0 01/21/2016 [facility] CHEM PANEL Bili Direct 0.1 mg/dL 0.0 - 0.3 01/21/2016 [facility] CHEM PANEL Bili Total 0.4 mg/dL 0.2 - 1.3 01/21/2016 [facility] CARDIAC ENZYMES Troponin-I null 0.00 - 0.40 01/21/2016 [facility] CARDIAC ENZYMES Total CK 54 unit/L 12 - 191 01/21/2016 [facility] CARDIAC ENZYMES BNP 13 pg/mL <=100 pg/mL 01/20/2016 [facility] CHEM PANEL Vitamin D, 25-OH, Total 21 ng/mL 30 - 100 01/20/2016 [facility] CHEM PANEL Uric Acid 3.8 mg/dL 2.5 - 7.0 01/20/2016 [facility] CHEM PANEL Phosphorus 3.0 mg/dL 2.5 - 4.5 01/20/2016 [facility] IMMUNOLOGY Homocyst Tot 7.5 umol/L 3.7 - 13.9 01/20/2016 [facility] LIPIDS LDL (Calculated) 151 mg/dL <=99 mg/dL 01/20/2016 [facility] LIPIDS VLDL 35 01/20/2016 [facility] LIPIDS HDL 49 mg/dL >=61 mg/dL 01/20/2016 [facility] LIPIDS Trig 177 mg/dL <=149 mg/dL 01/20/2016 [facility] LIPIDS Chol 235 mg/dL <=199 mg/dL 01/20/2016 [facility] LIPIDS CHD Risk 4.80 3.90 - 5.80 01/20/2016 [facility] SPECIAL CHEMISTRY Hgb A1C 9.2 % <=5.6 % 01/20/2016 [facility] URINE AND STOOL UA Urobilinogen <=1.0 mg/dL 0.1 - 1.0 01/20/2016 [facility] URINE AND STOOL UA Color Ltyellow 01/20/2016 [facility] URINE AND STOOL UA Sq Epi Occasional /LPF Few /LPF 01/20/2016 [facility] URINE AND STOOL UA RBC 2 /HPF 0 - 2 01/20/2016 [facility] URINE AND STOOL UA WBC 1 /HPF 0 - 5 01/20/2016 [facility] URINE AND STOOL UA Bili Negative *NA* (01/20/16 12:57 PM) Negative 01/20/2016 [facility] URINE AND STOOL UA Ketones Negative mg/dL Negative mg/dL 01/20/2016 [facility] URINE AND STOOL UA Nitrite Negative (01/20/16 12:57 PM) Negative 01/20/2016 [facility] URINE AND STOOL UA Blood Negative (01/20/16 12:57 PM) Negative 01/20/2016 [facility] URINE AND STOOL UA Leuk Est Trace *ABN* (01/20/16 12:57 PM) Negative 01/20/2016 [facility] URINE AND STOOL UA pH 5.0 5.0 - 8.0 01/20/2016 [facility] URINE AND STOOL UA Glucose 500 mg/dL Negative mg/dL 01/20/2016 [facility] URINE AND STOOL UA Protein Negative mg/dL Negative mg/dL 01/20/2016 [facility] URINE AND STOOL UA Spec Grav 1.017 <=1.030 01/20/2016 [facility] URINE AND STOOL UA Turbidity Clear (01/20/16 12:57 PM) Clear 01/20/2016 [facility] CARDIAC ENZYMES Total CK 68 unit/L 12 - 191 01/20/2016 [facility] CARDIAC ENZYMES CK MB 1.9 ng/mL 0.5 - 3.6 01/20/2016 [facility] CARDIAC ENZYMES Troponin-I null 0.00 - 0.40 01/20/2016 [facility] CARDIAC ENZYMES CK MB Index 2.8 0.0 - 2.5 01/20/2016 [facility] CHEM PANEL Magnesium Lvl 2.1 mg/dL 1.8 - 2.4 01/20/2016 [facility] CHEM PANEL Lipase Lvl 178 unit/L 73 - 393 01/20/2016 [facility] ELECTROLYTES CO2 24 meq/L 24 - 32 01/20/2016 [facility] ELECTROLYTES Calcium Lvl 8.8 mg/dL 8.5 - 10.5 01/20/2016 [facility] ELECTROLYTES AGAP 15.0 meq/L 10.0 - 20.0 01/20/2016 [facility] ELECTROLYTES Chloride Lvl 101 meq/L 95 - 109 01/20/2016 [facility] ELECTROLYTES Potassium Lvl 4.0 meq/L 3.5 - 5.1 01/20/2016 [facility] ELECTROLYTES Creatinine Lvl 0.93 mg/dL 0.50 - 1.40 01/20/2016 [facility] ELECTROLYTES Sodium Lvl 136 meq/L 135 - 145 01/20/2016 [facility] ELECTROLYTES BUN 19 mg/dL 7 - 22 01/20/2016 [facility] ELECTROLYTES eGFR 57 mL/min/1.73m2 01/20/2016 Result Comment: The eGFR is calculated using the [...] from the National Kidney Disease Education Program (NKDEP) which additionally recommends that when the eGFR is used in patients with extremes of body mass index for purposes of drug dosing, the eGFR should be multiplied by the estimated BMI. [facility] ELECTROLYTES Glucose Lvl 297 mg/dL 70 - 99 01/20/2016 [facility] HEMATOLOGY PT 13.5 s 12.0 - 14.7 01/20/2016 [facility] HEMATOLOGY INR 1.01 0.85 - 1.17 01/20/2016 [facility] PTT 26.9 s 22.9 - 35.8 01/20/2016 [facility] RBC 4.78 M/CMM 4.20 - 5.40 01/20/2016 [facility] Hgb 14.0 g/dL 12.0 - 16.0 01/20/2016 [facility] MCV 88.6 fL 80.0 - 98.0 01/20/2016 [facility] MCH 29.3 pg 27.0 - 31.0 01/20/2016 [facility] MCHC 33.1 g/dL 32.0 - 36.0 01/20/2016 [facility] RDW 13.1 % 11.5 - 14.5 01/20/2016 [facility] Platelet 213 K/CMM 133 - 450 01/20/2016 [facility] MPV 10.1 fL 7.4 - 10.4 01/20/2016 [facility] Hct 42.4 % 36.0 - 48.0 01/20/2016 [facility] WBC 8.2 K/CMM 3.7 - 10.4 01/20/2016 [facility] HEMATOLOGY Basophils 0.8 % 0.0 - 1.0 01/20/2016 [facility] Monocytes 7.6 % 2.0 - 12.0 01/20/2016 [facility] Eosinophils 2.4 % 0.0 - 4.0 01/20/2016 [facility] Segs-Bands # 5.5 K/CMM 1.5 - 8.1 01/20/2016 [facility] HEMATOLOGY Segs 66.2 % 45.0 - 75.0 01/20/2016 [facility] HEMATOLOGY Lymphocytes 23.0 % 20.0 - 40.0 01/20/2016 [facility] HEMATOLOGY Lymphocytes # 1.9 K/CMM 1.0 - 5.5 01/20/2016 [facility] HEMATOLOGY Monocytes # 0.6 K/CMM 0.0 - 0.8 01/20/2016 [facility] HEMATOLOGY Basophils # 0.1 K/CMM 0.0 - 0.2 01/20/2016 [facility] HEMATOLOGY Eosinophils # 0.2 K/CMM 0.0 - 0.5 01/20/2016 [facility] Chest 1view DX Chest 1view DX Study: Chest 1view DX 01/20/2016 12:33 PM COMPLIANCE ASSOCIATE Patient Name: NATALYA GALDAMEZ MR: [id number] : 1935; Age: 80 years y/o Female Ordering Physician: Major Jordan MD Clinical Indication: Chest pain Comparison: None FINDINGS LUNGS: The hyperinflated lungs are clear consolidation, pleural effusion, and pneumothorax. Slightly elevated right hemidiaphragm. HEART AND MEDIASTINUM: Heart size at the upper limits of normal to mildly enlarged. LINES: None. OSSEOUS STRUCTURES: No fracture, dislocation, or suspicious focal osseous lesion. OTHER: None. IMPRESSION: 1. Heart size at the upper limits of normal to mildly enlarged. 2. Hyperinflation. SL: [id number] 01/20/2016 - - Read by: Eric Hanson MD Dictated Date/time: 01/20/16 13:01 Electronically Signed by: Eric Hanson MD 01/20/16 13:03 FINAL REPORT [facility] Vital Signs Vital Sign Value Date Comments Source Heart Rate 76 01/21/2016 [facility] Systolic (mm Hg) 148 01/21/2016 [facility] Diastolic (mm Hg) 79 01/21/2016 [facility] Respitory Rate 18 01/21/2016 [facility] Temperature Oral (F) 98.6 F 01/21/2016 [facility] Heart Rate 77 01/21/2016 [facility] Respitory Rate 18 01/21/2016 [facility] Systolic (mm Hg) 149 01/21/2016 [facility] Diastolic (mm Hg) 82 01/21/2016 [facility] Temperature Oral (F) 98.6 F 01/21/2016 [facility] Temperature Oral (F) 97.8 F 01/21/2016 [facility] Heart Rate 77 01/21/2016 [facility] Systolic (mm Hg) 134 01/21/2016 [facility] Diastolic (mm Hg) 79 01/21/2016 [facility] Respitory Rate 18 01/21/2016 [facility] Weight 76.364 01/20/2016 [facility] BMI Calculated 31.81 01/20/2016 [facility] Height 154.94 cm 01/20/2016 [facility] Height 157.48 cm 01/20/2016 [facility] BMI Calculated 30.79 01/20/2016 [facility] Weight 76.364 01/20/2016 [facility] Encounters Location Location Details Encounter Type Encounter Number Reason For Visit Attending Provider ADM Date DC Date Status Source [facility] Observation [id number] [place] 01/20/2016 01/21/2016 [facility] Outpatient [id number] DIANA ENGLE 11/01/2016 Active [facility] [place] [facility] [id number] Hollie Huitron 12/16/2016 12/17/2016 [facility] [place] Procedures Procedure Code Date Perfomer Comments Source Cholecystectomy [id number] [facility] [place] Cholecystectomy [id number] [facility]
--- OUTSIDE RECORDS SUMMARY | 2018-04-08 23:22 | XMS REPORT ---
[facility] Address Unknown Phone Unavailable Care Team Providers Care Bale Piler Name Role Phone BENOIT, Padmini AIDAN Unavailable Unavailable Problems This patient has no known problems. Allergies, Adverse Reactions, Alerts This patient has no known allergies or adverse reactions. Medications This patient has no known medications. Results Test Description Test Time Test Comments Text Results Atomic Results Result Comments KNEE LEFT 1-2 VIEWS [place] [address] Patient Name: NATALYA GALDAMEZ MR #: [id number] : 1935 Age/Sex: 81/F Req #: [id number] Adm Physician: Ordered by: MAYITO PINA MD Report #: [id number] Location: ER Room/Bed: Procedure: [id number] DX/KNEE LEFT 1-2 VIEWS Exam Date: 11/12/16 Exam Time: 1944 REPORT STATUS: Signed EXAM: KNEE LEFT 1-2 VIEWS DATE: 11/12/2016 7:18 PM INDICATION: COMPARISON: None FINDINGS: Mild degenerative changes present. Joint spaces are grossly maintained. Small effusion present. No fracture identified. IMPRESSION: No fracture. Small effusion. Signed by: Dr. Kal Ham MD on 11/12/2016 8:00 PM Dictated By: KAL HAM MD 99 Transcribed By: BERNARD on 11/12/161999 COPY TO: MAYITO PINA MD CT BRAIN WO [place] [address] Patient Name: NATALYA GALDAMEZ MR #: [id number] : 1935 Age/Sex: 81/F Req #: [id number] Adm Physician: Ordered by: MAYITO PINA MD Report #: [id number] Location: ER Room/Bed: Procedure: [id number] CT/CT BRAIN WO Exam Date: 11/12/16 Exam Time: 1924 REPORT STATUS: Signed History:Status post fall, vertigo. Comparison studies:None Technique: Axial images were obtained from the skull base to the vertex. Coronal and sagittal images reconstructed from the axial data. Intravenous contrast: None Findings: Scalp/skull: No abnormalities. Extra-axial spaces: No masses. No fluid collections. Brain sulci: Mildly prominent. Ventricles: Mild compensatory dilatation. No hydrocephalus. Parenchyma: Scattered and confluent hypodensities in the supratentorial white matter are small vessel ischemic changes. No masses, hemorrhage, acute or chronic cortical vascular insults. Sellar/suprasellar region: No abnormalities. Craniocervical junction: Patent foramen magnum. No Chiari one malformation. Incidental findings: Atherosclerotic calcifications in the carotid siphons . Impression: No acute abnormalities. Chronic findings: 1. Mild generalized volume loss. 2. Moderate supratentorial white matter small vessel ischemic changes. Signed by: DR Abrahan De Jesus M.D. on 11/12/2016 8:26 PM Dictated By: ABRAHAN RUSSO MD 25 Transcribed By: BERNARD on 11/12/162025 COPY TO: MAYITO PINA MD
--- OUTSIDE RECORDS SUMMARY | 2018-04-08 23:22 | XMS REPORT | Summary of Care ---
Author Author [facility] [place] Organization [facility] [place] Address Unknown Phone Unavailable Encounter HQ Encntr_ari(FIN) [id number] Date(s): 12/16/16 - 12/16/16 [facility] [place] [address] [place] [address] [phone] Discharge Disposition: Home or Self Care Attending Physician: Hollie Huitron MD Vital Signs No data available for this section Problem List Condition Effective Dates Status Health Status Informant Hypertension(Confirm Resolved ed) Simple Active obesity(Confirmed) Allergies, Adverse Reactions, Alerts Substance Reaction Severity Status NKDA Active Medications No data available for this section Results No data available for this section Immunizations No data available for this section Procedures Procedure Date Related Diagnosis Body Site Cholecystectomy Social History Social History Type Response Alcohol Never Smoking Status Former smoker; Type: Cigarettes; Started at age: 16.0; Stopped at age: 17; Ready to change: No; Concerns about tobacco use in household: No; Exposure to Tobacco Smoke None; Cigarette Smoking Last 365 Days No; Reg Smoking Cessation Counseling No Assessment and Plan No data available for this section
[2018-04-08] MEDS ORDERED: CARVEDILOL6.25 MG PO (23:34)
[2018-04-08] MEDS ORDERED: GLUCOPHAGE XR500 MG PO (23:34)
[2018-04-08] MEDS ORDERED: GLIPIZIDE ER5 MG PO (23:34)
[2018-04-08] MEDS ORDERED: OMEPRAZOLE20 MG PO (23:34)
[2018-04-08] MEDS ORDERED: LISINOPRIL-HCT1 EAC1 PO (23:34)
[2018-04-08] MEDS ORDERED: ATORVASTATIN CA10 MG PO (23:34)
[2018-04-08] MEDS ORDERED: TRAMADOL HCL 50 MG TAB PO ONE (23:45)
--- NOTE | 2018-04-09 00:36 | Diagnostic Imaging Report ---
EXAM: HUMERUS LEFT 2+VIEWS DATE: 04/09/2018 12:00 AM INDICATION: Pain COMPARISON: None FINDINGS: No fracture or osseous lesion left humerus. Soft tissues are unremarkable. IMPRESSION: No acute findings. Signed by: Dr. Kal Ham MD on 04/09/2018 12:33 AM
--- NOTE | 2018-04-09 00:37 | Diagnostic Imaging Report ---
EXAM: ELBOW LEFT COMPLETE DATE: 04/09/2018 12:00 AM INDICATION: Pain COMPARISON: None FINDINGS: No fracture or subluxation. No true laterals identified limiting evaluation for joint effusion. Radiocapitellar alignment intact. IMPRESSION: No acute findings. Signed by: Dr. Kal Ham MD on 04/09/2018 12:34 AM
--- NOTE | 2018-04-09 00:37 | Diagnostic Imaging Report ---
EXAM: SHOULDER LEFT COMPLETE DATE: 04/09/2018 12:00 AM INDICATION: Pain COMPARISON: None FINDINGS: Mild degenerative changes. No fracture or subluxation. IMPRESSION: No acute findings. Signed by: Dr. Kal Ham MD on 04/09/2018 12:33 AM
== END 2018-04-09 00:47 | disposition home or self-care (01) ==
LOC: ER 23:19
DX: S40.011A Contusion of right shoulder, initial encounter (principal); S40.021A Contusion of right upper arm, initial encounter; S50.01XA Contusion of right elbow, initial encounter; W01.0XXA Fall on same level from slipping, tripping and stumbling without subsequent striking against object, initial encounter; Y92.008 Other place in unspecified non-institutional (private) residence as the place of occurrence of the external cause; I10 Essential (primary) hypertension; E78.00 Pure hypercholesterolemia, unspecified; F32.9 Major depressive disorder, single episode, unspecified
CPT/HCPCS: 99283